=== PATIENT | male | born 1945 | race Caucasian/White ===

== ENCOUNTER 2018-10-13 07:56 | Emergency (ER) | payer OTHER, MEDICARE, BC ==
--- NOTE | 2018-10-13 08:24 | EDM.PDOC ---
<Ellie Irene - Last Filed: 10/13/18 08:19> ED HPI GENERAL MEDICAL PROBLEM - General Chief Complaint: Respiratory Problem Stated Complaint: TROUBLE BREATHING [id number] Time Seen by Provider: 10/13/18 08:10 Source of Information: Reports: Patient, RN History Limitations: Reports: No Limitations - History of Present Illness INITIAL COMMENTS - FREE TEXT/NARRATIVE: Patient presents to ER due to the concern of bronchitis. Patient reports that he travelled from [place] to on Monday and then he started having cough. Cough is productive with greenish sputum. Yesterday, he also had subjective fever, chills, and night sweats. Denies sore throat, chest pain, sob, abdominal pain, and headache. non-smoker. Has history of asthma. has been using albuterol inhaler, flovent and nyquil with no help. Onset: Gradual Duration: Day(s): (6) Severity: Mild Associated Symptoms: Reports: Fever/Chills. 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: Cold Therapy, Other Medication(s) (Albuterol, flovent) - Related Data Allergies Allergy/AdvReac Type Severity Reaction Status Date / Time banana Allergy Swelling Verified 10/13/18 08:01 Penicillins Allergy Cannot Verified 10/13/18 08:01 Remember Home Meds: Home Meds Albuterol Sulfate [Proair Respiclick] 90 mcg INH Q4HR PRN 10/13/18 [History] Fluticasone Propionate [Flovent] 250 mcg INH BID 10/13/18 [History] Losartan [Cozaar] 50 mg PO DAILY 10/13/18 [History] atorvaSTATin [Lipitor] 20 mg PO DAILY 10/13/18 [History] Past Medical History HEENT History: Reports: Impaired Vision Cardiovascular History: Reports: High Cholesterol Respiratory History: Reports: Asthma Social & Family History - Tobacco Use Smoking Status *Q: Never Smoker - Caffeine Use Caffeine Use: Reports: Coffee - Recreational Drug Use Recreational Drug Use: No ED ROS GENERAL - Review of Systems Review Of Systems: ROS reveals no pertinent complaints other than HPI. ED EXAM, GENERAL - Physical Exam Exam: See Below Exam Limited By: No Limitations General Appearance: Alert, WD/WN, No Apparent Distress Eye Exam: Bilateral Eye: Normal Inspection, PERRL Ears: Normal External Exam, Normal Canal, Normal TMs Nose: Normal Inspection Throat/Mouth: Normal Inspection Head: Atraumatic, Normocephalic Neck: Lymphadenopathy (L) Respiratory/Chest: No Respiratory Distress, Lungs Clear, Normal Breath Sounds Cardiovascular: Normal Peripheral Pulses, Regular Rate, Rhythm GI/Abdominal: Normal Bowel Sounds, Soft, Non-Tender (Male) Exam: Deferred Rectal (Males) Exam: Deferred Extremities: Normal Inspection, Normal Range of Motion Neurological: Alert, Oriented Course - Vital Signs Last Recorded V/S: Last Vital Signs Temp 97.5 F 10/13/18 08:01 Pulse 72 10/13/18 08:01 Resp 18 10/13/18 08:01 BP 142/74 H 10/13/18 08:01 Pulse Ox 97 10/13/18 08:01 Departure - Departure Time of Disposition: 08:41 Disposition: Home, Self-Care 01 Condition: Fair Clinical Impression: Bronchitis - Discharge Information *PRESCRIPTION DRUG MONITORING PROGRAM REVIEWED*: Not Applicable *COPY OF PRESCRIPTION DRUG MONITORING REPORT IN PATIENT NARGIS: Not Applicable Instructions: Acute Bronchitis, Adult, [id number] Forms: ED Department Discharge Care Plan Goals: Influenza is negative Discussed with patient that he has bronchitis, discussed the course of illness and treatment Cough syrup OTC, cough lozenges OTC hot tea, monica and honey tylenol and ibuprofen as needed for pain and fever education provided about using albuterol inhaler follow up as needed <Danni Sue - Last Filed: 10/13/18 08:45> Course - Re-Assessments/Exams Free Text/Narrative Re-Assessment/Exam: 10/13/18 08:45 I saw and evaluated the patient. Discussed with resident and agree with resident s findings and plan as documented in the residents note.
== END 2018-10-13 08:47 | disposition home or self-care (01) ==
LOC: DL.ED 07:56
DX: J40 Bronchitis, not specified as acute or chronic (principal); E78.00 Pure hypercholesterolemia, unspecified; Z88.0 Allergy status to penicillin; Z91.018 Allergy to other foods; Z79.899 Other long term (current) drug therapy
CPT/HCPCS: 87804; 99283